=== PATIENT | female | born 1985 | race Caucasian/White ===

== ENCOUNTER 2016-04-06 09:20 | Emergency (ER) ==
--- NOTE | 2016-04-06 10:05 | ED EKG INTERP ---
EKG Interpretation - EKG Time of EKG reading by physician:: 09:34 EKG Read and Signed by:: Christian Alvarez EKG Interpretation (*Must complete 3 of following elements*): Abnormal ( nonspecific T wave abnormality) Rate: 111 Rhythm: sinus tachycardia Comments: moderate voltage criteria for LVH, may be normal variant Attestation - Scribe Verification/Attestation Scribe:: Brooek Guzman Acting as Scribe for:: Christian Alvarez Scribe documention review:: This chart was documented by a scribe and accurately reflects the service the provider performed and the decisions made by the provider.
[2016-04-06] MEDS ORDERED: COMPAZINE IV ONE (10:29)
[2016-04-06] MEDS ORDERED: BENADRYL IV ONE (10:29)
[2016-04-06] MEDS ORDERED: NS 1,000 ML IV ONE (10:29)
[2016-04-06] MEDS ORDERED: TORADOL IM ONE (10:29)
--- NOTE | 2016-04-06 10:35 | PROVIDER DOCUMENTATION ---
HPI-Headache - General Chief Complaint: Headache Stated Complaint: DIZZINESS,CARREON,BILA ARM,HAND NUMBNESS Time Seen by Provider: 04/06/16 10:02 Source: patient Allergies/Adverse Reactions: Patient Allergies Allergy/AdvReac Type Severity Reaction Status Date / Time No Known Allergies Allergy Verified 08/03/14 18:29 - History of Present Illness-Headache Nature of Presenting Problem: A 30 y/o F with PMH migraines presented with frontal headaches radiating to to left neck associted with photophobia and nausea. Initially thought its similar to migraines but reported headache to be the worse headache associated with anxiety, at presentation she was anxious and later she return to her normal but headache and nausea persisted, denies CP/SOB/abd pain Review of Systems - Adult - REVIEW OF SYSTEMS - ADULT Constitutional: reports: no symptoms reported Eyes: reports: no symptoms reported Ears, Nose, Mouth & Throat: reports: no symptoms reported Cardiovascular: reports: no symptoms reported Respiratory: reports: no symptoms reported Gastrointestinal: reports: no symptoms reported Genitourinary: reports: no symptoms reported Musculoskeletal: reports: no symptoms reported Integumentary: reports: no symptoms reported Neurological: reports: see HPI Psychiatric: reports: no symptoms reported Endocrine: reports: no symptoms reported Hematologic/Lymphatic: reports: no symptoms reported Allergic/Immunologic: reports: no symptoms reported All Other Systems: Reviewed and Negative Past History - Adult - PAST MEDICAL HISTORY-ADULT Review of Records: reports: Old Records Reviewed, Nursing Assessment Review, Medications Reviewed, Social history reviewed & non-contributory. Major Childhood Illnesses: reports: denies history Cardiovascular: reports: denies history Respiratory: reports: denies history Gastrointestinal: reports: denies history Obstetrical/Gynecological: reports: denies history Genitourinary: reports: denies history Musculoskeletal: reports: denies history Neurological: reports: denies history Endocrine/Immune: reports: denies history Other Conditions: reports: denies history - IMMUNIZATION STATUS Childhood Immunizations: See Nurse Assessment Flu Vaccine: See Nurse Assessment - FAMILY HISTORY Family History: reviewed, not pertinent Physical Exam- Neurological - Physical Exam-Neuro General Appearance: appears well, alert, mild distress Eye Exam: bilateral eye: normal inspection, PERRL, EOMI HENMT: normocephalic/atraumatic, normal ENT inspection, TMs normal, pharynx normal Head Injury: no evidence of injury, tenderness (on left temporal region and left occipital region) Neck: non-tender, full range of motion, supple, normal inspection Respiratory: chest non-tender, lungs clear, normal breath sounds, no pleuratic chest pain, no respiratory distress, no accessory muscle use Cardiovascular: normal peripheral pulses, regular rate, rhythm, no edema, no gallop, no JVD, no murmur Abdominal Exam: normal bowel sounds, non tender, soft, no organomegaly, no pulsatile mass Lymphatic: no adenopathy Extremity: normal range of motion, non-tender, normal gait, normal inspection, no pedal edema, no calf tenderness, normal capillary refill, pelvis stable business applications developer Exam: normal hearing, normal speech, PERRL Coordination/Gait: normal finger to nose, normal gait, negative Romberg's sign Motor/Sensory: no motor deficit, no sensory deficit, no pronator drift, negative Babinski's sign Neurologic: business applications developer II-XII nml as tested, no motor/sensory deficits Integumentary: normal color, normal turgor, warm/dry Psych/Mental Status: AL, normal mood/affect, normal thought content, normal thought process, oriented x 3 Progress - PLAN OF CARE/RESULTS Progress/Plan/Lab Results: Orders Category Date Time Status ED: Urine Bedside ORDERED Care 04/06/16 10:39 Active HEAD W/O CONTRAST [CT] Stat Exams 04/06/16 10:29 Taken 0.9% Sodium Chloride Inj [Ns] 1,000 ml Med 04/06/16 10:29 Discontinued IV 999 mls/hr Diphenhydramine [Benadryl] Med 04/06/16 10:29 Discontinued 25 mg IV NOW ONE Ketorolac [Toradol] Med 04/06/16 10:29 Discontinued 30 mg IM NOW ONE Ketorolac [Toradol] Med 04/06/16 11:00 Discontinued 30 mg IV NOW ONE Prochlorperazine [Compazine] Med 04/06/16 10:29 Discontinued 10 mg IV NOW ONE EKG [EKG] Stat Ther 04/06/16 09:28 Ordered Vital Signs Temp Pulse Resp BP Pulse Ox 04/06/16 11:27 65 16 134/80 98 04/06/16 09:23 97.4 F L 124 H 22 179/110 100 No Known Allergies Allergy (Verified 08/03/14 18:29) Clindamycin [Cleocin] 150 mg PO Q6HR #30 capsule 08/03/14 Meloxicam [Mobic] 7.5 mg PO DAILY PRN PRN #15 tablet 08/03/14 Omeprazole [Prilosec] 20 mg PO DAILY@0700 #20 capsule 08/03/14 Sulfamethoxazole/Trimethoprim [Bactrim Ds Tablet] 1 each PO BID #10 tablet 08/03 - REASSESSMENT Reassessment #1 Status: improving (headaache resolved) - CT/MRI 1 CT Study: Head Impression: See EMR Report (no acute process, calcifications) Departure - Departure Time of Disposition Order: 11:52 DIAGNOSIS: Migraine Qualifiers: Migraine type: with aura Status migrainosus presence: without status migrainosus Intractability: intractable Qualified Code(s): G43.119 - Migraine with aura, intractable, without status migrainosus Disposition: HOME 01 Certified Medical Emergency: Emergent Condition: Good - Critical Care Note Comments: A 30 y/o F with PMH of migraines was treated with migraine cocktail , CT head normal no intracranial bleed, improved and her headach resolved, discharge home to take ibuprofen PRN, sedative meds given not to drive or work on heavy machinary, take OTC painmeds PRN and follow up with PCP for migraine prophylaxis
[2016-04-06] MEDS ORDERED: TORADOL IV ONE (11:00)
[2016-04-06 11:28] VITALS: BP 134/80
--- NOTE | 2016-04-06 11:47 | Diag Imaging Result Document ---
PROCEDURE NAME: HEAD W/O CONTRAST - 04/06/2016 CT OF THE HEAD WITHOUT CONTRAST: FINDINGS: There is no evidence of mass effect, bleed, or abnormal extra-axial fluid collection. There are mucous retention cysts in the right maxillary and left sphenoid sinuses. The regional skeleton appears to be intact otherwise. IMPRESSION: No evidence of acute intracranial disease.
--- NOTE | 2016-04-06 15:26 | EKG Report ---
Test Performed on : 04/06/2016 09:34:43 AM Test Reason : dizzines Blood Pressure : / mmHG Vent. Rate : 111 BPM Atrial Rate : 111 BPM P-R Int : 136 ms QRS Dur : 094 ms QT Int : 362 ms P-R-T Axes : 048 004 -28 degrees QTc Int : 492 ms Sinus tachycardia. Moderate voltage criteria for LVH, may be normal variant Nonspecific T wave abnormality Abnormal ECG No previous ECGs available Unconfirmed Result
== END 2016-04-06 12:04 | disposition home or self-care (01) ==
LOC: ED 09:20
DX: G43.119 Migraine with aura, intractable, without status migrainosus (principal); R51 Headache; M54.2 Cervicalgia; H53.149 Visual discomfort, unspecified; R11.0 Nausea; R94.31 Abnormal electrocardiogram [ECG] [EKG]; Z79.899 Other long term (current) drug therapy
CPT/HCPCS: 70450; 93005; 96374; J0780; J1200; J1885; J7030